=== PATIENT | female | born 1980 | race Two or more races ===

== ENCOUNTER 2017-10-22 07:44 | Outpatient (CLI) | payer OTHER ==
[~2017-10-22 07:44] MED LIST: ALBUTEROL17 GM IH; BENADRYL50 MG PO; COZAAR100 MG PO; HYZAAR 100/25 T1 TAB; MEDROL4 MG PO; PEPCID40 MG PO; ZOFRAN4 MG PO
== END 2017-10-22 07:49 | disposition home or self-care (01) ==
LOC: LAB 07:44
DX: D64.9 Anemia, unspecified (principal); N39.0 Urinary tract infection, site not specified; R10.9 Unspecified abdominal pain; E03.9 Hypothyroidism, unspecified; E78.5 Hyperlipidemia, unspecified; R80.9 Proteinuria, unspecified; E11.9 Type 2 diabetes mellitus without complications; R73.09 Other abnormal glucose; I11.9 Hypertensive heart disease without heart failure; R73.02 Impaired glucose tolerance (oral); E78.2 Mixed hyperlipidemia

== ENCOUNTER 2017-12-11 22:58 | Emergency (ER) | payer OTHER ==
[~2017-12-11] VITALS: Ht 162.6 cm; Wt 112.0 kg
[2017-12-11] MEDS ORDERED: COZAAR25 MG (23:49)
[2017-12-12] MEDS ORDERED: ZITHROMAX500 MG PO (06:10)
[2017-12-12] MEDS ORDERED: ZYNCOF 20-400120 ML PO (06:10)
[2017-12-12] MEDS ORDERED: ALBUTEROL2.5 MG/3 M IH (06:10)
[2017-12-12] MEDS ORDERED: ZYRTEC10 M2 PO (06:10)
== END 2017-12-12 06:19 | disposition home or self-care (01) ==
LOC: ER 22:58
DX: J06.9 Acute upper respiratory infection, unspecified (principal)

== ENCOUNTER 2018-07-22 09:34 | Outpatient (CLI) | payer OTHER ==
[~2018-07-22 09:34] MED LIST changes: +ALBUTEROL2.5 MG/3 M IH; +COZAAR25 MG; +ZITHROMAX500 MG PO; +ZYNCOF 20-400120 ML PO; +ZYRTEC10 M2 PO
== END 2018-07-22 12:47 | disposition home or self-care (01) ==
LOC: LAB 09:34
DX: Z11.3 Encounter for screening for infections with a predominantly sexual mode of transmission (principal); D64.89 Other specified anemias; N39.0 Urinary tract infection, site not specified; R10.9 Unspecified abdominal pain; E03.8 Other specified hypothyroidism; E78.49 Other hyperlipidemia; R80.8 Other proteinuria; E11.9 Type 2 diabetes mellitus without complications; R73.09 Other abnormal glucose; I11.9 Hypertensive heart disease without heart failure; E78.4 Other hyperlipidemia; R73.02 Impaired glucose tolerance (oral)

== ENCOUNTER → 2019-04-28 06:39 | Outpatient (CLI) | payer OTHER | END | disposition home or self-care (01) | LOC: LAB 06:39 | DX: R10.84 Generalized abdominal pain (principal); E78.49 Other hyperlipidemia ==

== ENCOUNTER 2019-07-14 06:38 | Outpatient (CLI) | payer OTHER | END 2019-07-14 06:40 | disposition home or self-care (01) | LOC: LAB 06:38 | DX: I10 Essential (primary) hypertension (principal); E66.8 Other obesity ==

== ENCOUNTER 2020-03-09 10:00 | Outpatient (CLI) | payer OTHER | END 2020-03-09 15:45 | disposition home or self-care (01) | LOC: PPH VACUNA 10:00 | DX: Z23 Encounter for immunization (principal) ==

== ENCOUNTER → 2020-07-07 06:48 | Outpatient (CLI) | payer OTHER | END | disposition home or self-care (01) | LOC: LAB 06:48 | PROVIDERS: ATTEND Internal Medicine | DX: D64.89 Other specified anemias (principal); R10.84 Generalized abdominal pain; E03.8 Other specified hypothyroidism; R80.8 Other proteinuria; E11.9 Type 2 diabetes mellitus without complications ==

== ENCOUNTER 2020-10-25 07:05 | Outpatient (CLI) | payer OTHER | END 2020-10-25 07:10 | disposition home or self-care (01) | LOC: LAB 07:05 | PROVIDERS: ATTEND Obstetrics & Gynecology | DX: E16.2 Hypoglycemia, unspecified (principal); N39.0 Urinary tract infection, site not specified; E78.2 Mixed hyperlipidemia; E56.8 Deficiency of other vitamins; E55.9 Vitamin D deficiency, unspecified; E03.8 Other specified hypothyroidism; R97.1 Elevated cancer antigen 125 [CA 125]; R53.1 Weakness; E66.01 Morbid (severe) obesity due to excess calories; Z11.3 Encounter for screening for infections with a predominantly sexual mode of transmission ==

== ENCOUNTER → 2020-10-25 | Outpatient (CLI) | payer OTHER | END | disposition home or self-care (01) | LOC: MAMO-SONO 08:08 | DX: Z12.31 Encounter for screening mammogram for malignant neoplasm of breast (principal); N64.59 Other signs and symptoms in breast ==

== ENCOUNTER 2020-12-20 07:26 | Outpatient (CLI) | payer OTHER | END 2020-12-20 07:33 | disposition home or self-care (01) | LOC: SONOGRAMA 07:26 | PROVIDERS: ATTEND Surgery | DX: R10.13 Epigastric pain (principal); K21.9 Gastro-esophageal reflux disease without esophagitis; R07.89 Other chest pain; E66.01 Morbid (severe) obesity due to excess calories; R00.8 Other abnormalities of heart beat; I10 Essential (primary) hypertension ==

== ENCOUNTER 2021-02-22 06:15 | Outpatient (CLI) | payer OTHER | END 2021-02-22 06:16 | disposition home or self-care (01) | LOC: LAB 06:15 | PROVIDERS: ATTEND Internal Medicine | DX: D64.89 Other specified anemias (principal); R10.84 Generalized abdominal pain; E78.49 Other hyperlipidemia ==

== ENCOUNTER 2021-03-13 09:38 | Outpatient (CLI) | payer OTHER | END 2021-03-13 10:38 | disposition home or self-care (01) | LOC: PPH VACUNA 09:38 | PROVIDERS: ATTEND Emergency Medicine Pediatric Emergency Medicine | DX: Z23 Encounter for immunization (principal) ==

== ENCOUNTER → 2021-04-02 09:23 | Outpatient (CLI) | payer OTHER | END | disposition home or self-care (01) | LOC: LAB 09:23 | PROVIDERS: ATTEND Specialist | DX: R10.13 Epigastric pain (principal); R19.5 Other fecal abnormalities; E66.01 Morbid (severe) obesity due to excess calories; E56.8 Deficiency of other vitamins ==

== ENCOUNTER 2021-07-04 14:47 | Outpatient (CLI) | payer OTHER | END 2021-07-04 14:56 | disposition home or self-care (01) | LOC: LAB 14:47 | PROVIDERS: ATTEND Surgery | DX: E66.01 Morbid (severe) obesity due to excess calories (principal); K44.9 Diaphragmatic hernia without obstruction or gangrene; R10.30 Lower abdominal pain, unspecified; Z03.818 Encounter for observation for suspected exposure to other biological agents ruled out ==

== ENCOUNTER 2021-12-25 07:19 | Outpatient (CLI) | payer OTHER | END 2021-12-25 07:25 | disposition home or self-care (01) | LOC: RAD 07:19 | PROVIDERS: ATTEND Acupuncturist | DX: M25.562 Pain in left knee (principal); R07.89 Other chest pain; R09.89 Other specified symptoms and signs involving the circulatory and respiratory systems ==

== ENCOUNTER 2022-02-27 10:55 | Outpatient (CLI) | payer OTHER | END 2022-02-27 11:00 | disposition home or self-care (01) | LOC: PPH VACUNA 10:55 | PROVIDERS: ATTEND Emergency Medicine Pediatric Emergency Medicine | DX: Z23 Encounter for immunization (principal) ==

== ENCOUNTER 2022-11-14 10:23 | Outpatient (CLI) | payer OTHER ==
[~2022-11-14 10:23] MED LIST changes: +NORVASC2.5 M1 PO
== END 2022-11-14 10:27 | disposition home or self-care (01) ==
LOC: MAMO-SONO 10:23
PROVIDERS: ATTEND Obstetrics & Gynecology
DX: Z12.31 Encounter for screening mammogram for malignant neoplasm of breast (principal); N64.4 Mastodynia; N63.31 Unspecified lump in axillary tail of the right breast; N63.32 Unspecified lump in axillary tail of the left breast

== ENCOUNTER 2023-04-09 07:48 | Outpatient (CLI) | payer OTHER ==
[2023-04-09 08:15] LABS: HEMOGLOBIN 12.7 g/dL (12.0-15.00); MEAN CELL VOLUME 84.7 fL (80.00-100.00); MEAN CORPUSCULAR HEMOGLOBIN 28.3 pg (27.00-32.0); MEAN CORPUSCULAR HGB CONC 33.5 g/dl (32.0-36.0); PLATELET COUNT 186 K/uL (150-450); RED BLOOD COUNT 4.49 M/uL (4.00-6.00)
[2023-04-09 08:16] LABS: RED CELL DISTRIBUTION WIDTH 19.2 % (11.5-14.5)
[2023-04-09 09:18] LABS: ALBUMIN 3.4 gm/dL (3.4-5.0); BILIRUBIN TOTAL 0.48 mg/dL (0.3-1.2); CALCIUM 8.6 mg/dL (8.5-10.1); CREATININE SERUM 0.7 mg/dL (0.55-1.02); FERRITIN 12.8 NG/ML (8-252); GFR 91.76; GLOBULINA 3.5 G/DL (2.4-3.5); POTASSIUM 3.7 mEq/L (3.5-5.1); TOTAL PROTEIN 6.9 gm/dL (6.4-8.2)
== END 2023-04-09 07:51 | disposition home or self-care (01) ==
LOC: LAB 07:48
PROVIDERS: ATTEND Internal Medicine Gastroenterology
DX: R10.13 Epigastric pain (principal); R11.2 Nausea with vomiting, unspecified; K76.0 Fatty (change of) liver, not elsewhere classified

== ENCOUNTER 2023-04-09 08:07 | Outpatient (CLI) | payer OTHER | END 2023-04-09 08:09 | disposition home or self-care (01) | LOC: SONOGRAMA 08:07 | PROVIDERS: ATTEND Internal Medicine Gastroenterology | DX: R10.13 Epigastric pain (principal); R11.2 Nausea with vomiting, unspecified; K76.0 Fatty (change of) liver, not elsewhere classified ==

== ENCOUNTER 2023-09-24 23:29 | Emergency (ER) | payer OTHER ==
[~2023-09-24] VITALS: Ht 162.6 cm; Wt 67.1 kg
[2023-09-25] MEDS ORDERED: HYOSCYAMINE SULFATE 0.125 MG TAB.SUBL SL STA (00:23)
[2023-09-25] MEDS ORDERED: PROMETHAZINE HCL 50 MG/ML AMPUL IM STA (00:24)
[2023-09-25] MEDS ORDERED: LACTOBACILLUS ACIDOPHILUS 1 CAP CAP PO STA (00:25)
[2023-09-25] MEDS ORDERED: FAMOTIDINE/PF 20 MG/2 ML VIAL IV PUSH STA (00:25)
[2023-09-25] MEDS ORDERED: DEXTROSE 5 % AND 0.9 % NACL 1,000 ML IV ONE (00:30)
[2023-09-25 00:57] LABS: HEMATOCRIT 37.8 % (36.0-45.00); HEMOGLOBIN 12.7 g/dL (12.0-15.00); MEAN CELL VOLUME 86.8 fL (80.00-100.00); MEAN CORPUSCULAR HEMOGLOBIN 29.1 pg (27.00-32.0); MEAN CORPUSCULAR HGB CONC 33.5 g/dl (32.0-36.0); PLATELET COUNT 185 K/uL (150-450); RED BLOOD COUNT 4.35 M/uL (4.00-6.00)
[2023-09-25 01:12] LABS: PH,URINE 5.5 (5.0-8.0); URINE APPEARANCE Clear; URINE BILIRRUBIN Negative (NEGATIVE); URINE BLOOD Negative; URINE COLOR Yellow; URINE GLUCOSE Negative (NEGATIVE); URINE LEUKOCYTE Negative; URINE NITRATE Negative; URINE PROTEIN Negative (NEGATIVE); URINE UROBILINOGEN 0.2 E.U./dl
[2023-09-25 01:13] LABS: URINE BACTERIA 1370.7 uL (0.0-1933); URINE EPITHELIAL CELLS 38.6 uL (0.0-38.8); URINE RBC 7.7 uL (0.0-20.8); URINE WBC 21.7 uL (0.0-23.2)
[2023-09-25 01:14] LABS: CALCIUM 8.8 mg/dL (8.5-10.1); CREATININE SERUM 0.67 mg/dL (0.55-1.02); GFR 96.06; POTASSIUM 4.14 mEq/L (3.5-5.1)
[2023-09-25] MEDS ORDERED: INTESTINEX680 M1 PO (06:14)
[2023-09-25] MEDS ORDERED: ONDANSETRON ODT4 MG PO (06:14)
[2023-09-25] MEDS ORDERED: LEVSIN/SL0.125 MG SL (06:14)
== END 2023-09-25 06:21 ==
LOC: ER 23:30
PROVIDERS: General Practice
DX: R11.10 Vomiting, unspecified (principal); R19.7 Diarrhea, unspecified; Z98.84 Bariatric surgery status

== ENCOUNTER → 2024-03-01 06:21 | Outpatient (CLI) | payer OTHER ==
[~2024-03-01 06:21] MED LIST changes: +INTESTINEX680 M1 PO; +LEVSIN/SL0.125 MG SL; +ONDANSETRON ODT4 MG PO
[2024-03-01 07:27] LABS: HEMATOCRIT 32.8 % (36.0-45.00); HEMOGLOBIN 10.7 g/dL (12.0-15.00); MEAN CELL VOLUME 82.5 fL (80.00-100.00); MEAN CORPUSCULAR HGB CONC 32.7 g/dl (32.0-36.0); PLATELET COUNT 268 K/uL (150-450); RED BLOOD COUNT 3.98 M/uL (4.00-6.00); RED CELL DISTRIBUTION WIDTH 15.5 % (11.5-14.5)
[2024-03-01 08:03] LABS: ALBUMIN 3.6 gm/dL (3.4-5.0); BILIRUBIN TOTAL 0.58 mg/dL (0.3-1.2); CALCIUM 8.8 mg/dL (8.5-10.1); CREATININE SERUM 0.6 mg/dL (0.55-1.02); GFR 109.11; POTASSIUM 3.66 mEq/L (3.5-5.1); TOTAL PROTEIN 7.6 gm/dL (6.4-8.2)
[2024-03-02 13:11] LABS: INSULIN LEVELS 3.9 uIU/mL (2.6-24.9)
[2024-03-08 05:05] LABS: I AB < 5.0 uU/mL (.)
== END | disposition home or self-care (01) ==
LOC: LAB 06:21
PROVIDERS: ATTEND Internal Medicine
DX: E11.65 Type 2 diabetes mellitus with hyperglycemia (principal); E16.2 Hypoglycemia, unspecified; E03.8 Other specified hypothyroidism; E78.9 Disorder of lipoprotein metabolism, unspecified

== ENCOUNTER 2024-03-01 06:27 | Outpatient (CLI) | payer OTHER | END 2024-03-01 13:56 | disposition home or self-care (01) | LOC: LAB 06:27 | PROVIDERS: ATTEND Preventive Medicine Occupational Medicine | DX: B19.10 Unspecified viral hepatitis B without hepatic coma (principal) ==

== ENCOUNTER 2024-04-20 07:29 | Outpatient (CLI) | payer OTHER ==
[2024-04-20 07:58] LABS: HEMATOCRIT 34.1 % (36.0-45.00); MEAN CELL VOLUME 81.1 fL (80.00-100.00); MEAN CORPUSCULAR HEMOGLOBIN 26.1 pg (27.00-32.0); MEAN CORPUSCULAR HGB CONC 32.2 g/dl (32.0-36.0); PLATELET COUNT 251 K/uL (150-450); RED CELL DISTRIBUTION WIDTH 17.1 % (11.5-14.5)
[2024-04-20 09:15] LABS: FERRITIN 6.2 NG/ML (8-252)
== END 2024-04-20 07:32 | disposition home or self-care (01) ==
LOC: LAB 07:29
PROVIDERS: ATTEND Internal Medicine Hematology & Oncology
DX: D50.8 Other iron deficiency anemias (principal)

== ENCOUNTER 2024-05-06 10:21 | Emergency (ER) | payer OTHER ==
[~2024-05-06] VITALS: Ht 162.6 cm; Wt 70.3 kg
[2024-05-06] MEDS ORDERED: KETOROLAC TROMETHAMINE 60 MG VIAL IM STA (12:05)
[2024-05-06] MEDS ORDERED: DICLOFENAC POTA50 MG PO (13:58)
== END 2024-05-06 14:18 | disposition home or self-care (01) ==
LOC: ER 10:23
DX: S99.812A Other specified injuries of left ankle, initial encounter (principal); W10.0XXA Fall (on)(from) escalator, initial encounter; Y93.89 Activity, other specified; Y92.018 Other place in single-family (private) house as the place of occurrence of the external cause; J45.909 Unspecified asthma, uncomplicated; I10 Essential (primary) hypertension
CPT/HCPCS: 73610; 73630; 96372; 99283; J1885

== ENCOUNTER → 2024-07-21 06:17 | Outpatient (CLI) | payer OTHER ==
[~2024-07-21 06:17] MED LIST changes: +DICLOFENAC POTA50 MG PO
[2024-07-21 07:09] LABS: HEMATOCRIT 32.4 % (36.0-45.00); HEMOGLOBIN 10.6 g/dL (12.0-15.00); MEAN CORPUSCULAR HEMOGLOBIN 25.6 pg (27.00-32.0); MEAN CORPUSCULAR HGB CONC 32.8 g/dl (32.0-36.0); PLATELET COUNT 268 K/uL (150-450); RED BLOOD COUNT 4.15 M/uL (4.00-6.00); RED CELL DISTRIBUTION WIDTH 16.1 % (11.5-14.5)
[2024-07-21 08:03] LABS: FERRITIN 3.8 NG/ML (8-252)
== END | disposition home or self-care (01) ==
LOC: LAB 06:17
PROVIDERS: ATTEND Internal Medicine Hematology & Oncology
DX: D50.0 Iron deficiency anemia secondary to blood loss (chronic) (principal); D50.8 Other iron deficiency anemias

== ENCOUNTER 2024-08-27 06:11 | Outpatient (CLI) | payer OTHER ==
[2024-08-27 07:31] LABS: HEMATOCRIT 33.9 % (36.0-45.00); HEMOGLOBIN 10.9 g/dL (12.0-15.00); MEAN CELL VOLUME 80.5 fL (80.00-100.00); MEAN CORPUSCULAR HEMOGLOBIN 25.9 pg (27.00-32.0); MEAN CORPUSCULAR HGB CONC 32.2 g/dl (32.0-36.0); PLATELET COUNT 202 K/uL (150-450); RED BLOOD COUNT 4.21 M/uL (4.00-6.00); RED CELL DISTRIBUTION WIDTH 18.2 % (11.5-14.5)
[2024-08-27 07:40] LABS: URINE APPEARANCE Clear; URINE BILIRRUBIN Negative (NEGATIVE); URINE BLOOD Negative; URINE COLOR Yellow; URINE GLUCOSE Negative (NEGATIVE); URINE KETONE Trace (NEGATIVE); URINE LEUKOCYTE Negative; URINE NITRATE Negative; URINE PROTEIN Negative (NEGATIVE); URINE UROBILINOGEN 0.2 E.U./dl
[2024-08-27 07:42] LABS: URINE BACTERIA 968.1 uL (0.0-1933); URINE RBC 3.8 uL (0.0-20.8)
[2024-08-27 07:45] LABS: INR 0.94; PARTIAL THROMBOPLASTIN TIME 26.5 SECONDS (22.0-34.0); PROTHROMBIN TIME 10.3 SECONDS (9.0-11.5)
[2024-08-27 07:52] LABS: URINE CAST 0.14 uL (0.0-1.40)
[2024-08-27 08:51] LABS: CALCIUM 8.7 mg/dL (8.5-10.1); CREATININE SERUM 0.67 mg/dL (0.55-1.02); GFR 95.61; POTASSIUM 3.92 mEq/L (3.5-5.1)
== END 2024-08-27 06:17 | disposition home or self-care (01) ==
LOC: LAB 06:11
PROVIDERS: ATTEND Plastic Surgery
DX: E66.01 Morbid (severe) obesity due to excess calories (principal); N62 Hypertrophy of breast

== ENCOUNTER 2024-08-28 08:59 | Outpatient (CLI) | payer OTHER | END 2024-08-28 23:00 | disposition home or self-care (01) | LOC: LAB 08:59 | PROVIDERS: ATTEND Plastic Surgery | DX: E66.01 Morbid (severe) obesity due to excess calories (principal) ==